=== PATIENT | female | born 1980 | race Caucasian/White ===

== ENCOUNTER 2016-04-24 22:26 | Emergency (ER) | payer OTHER ==
--- NOTE | 2016-04-25 02:49 | ED ORDER SUMMARY ---
..... Patient: HAILEY HASKINS OrderSheet [facility] VisitID: [id number] [place] [address] 35y, F Registration Date/Time: 04/24/2016 ORDER SHEET Weight: 52.6 kg (stated) Allergies: Hydrocodone, Naprosyn, Methocarbamol, Alcohol GENERAL ORDERS: CBC w Diff Urgent (22:33 04/24/2016 Waldo COREAS) (Ack 22:36 Andre) (22:49 DDavis R.N.) CMP Urgent (22:04/24/2016 Waldo COREAS) (Ack 22:36 Andre) (22:49 DDavis R.N.) UA-Culture if indicated Urgent (:04/24/2016 Waldo COREAS) (Ack 22:36 Anrde) (22:49 DDavis R.N.) Amylase Urgent (:04/24/2016 Waldo COREAS) (Ack 22:36 Andre) (22:49 DDavis R.N.) Lipase Urgent (22:33 04/24/2016 Waldo COREAS) (Ack 22:36 Andre) (22:49 DDavis R.N.) Urine Urgent (22:33 04/24/2016 Waldo COREAS) (Ack 22:36 Andre) (22:49 DDavis R.N.) MEDICATION ORDERS: Levofloxacin PO 750 mg (NOW) (23:42 04/24/2016 Waldo COREAS) (Ack 23:48 RCollier R.N.) (0:04 DDavis R.N.) KCl PO 40 meq (NOW) (23:43 04/24/2016 Waldo COREAS) (Ack 23:48 RCollier R.N.) (0:05 DDavis R.N.) GI Cocktail WHITE PO 30 mL with Lidocaine Viscous Mouth/Throat 15 mL, Maalox Plus Oral 15 mL (01:28 04/25/2016 Waldo COREAS) (1:31 DDavis R.N.) IV FLUIDS: IV NS : initial bolus 500 mL (1000 mL/hr), then 125 mL/hr for 4h (NOW); Urgent (22:33 04/24/2016 Waldo COREAS) (Ack 22:52 DDavis R.N.) (22:56 DDavis R.N.) KCl IV 20 meq/100mL (Run no faster than 10 units/hr, HIGH ALERT MEDICATION, NOW, Run no faster than 10 mEq/hr) (23:43 04/24/2016 Waldo COREAS) (Ack 23:48 RCollier R.N.) (0:11 DDavis R.N.) Toradol IV 30 mg (NOW) (23:46 04/24/2016 Waldo CORAES) (Ack 23:48 RCollier R.N.) (0:06 DDavis R.N.) Zofran IV 4 mg (NOW) (23:46 04/24/2016 Waldo COREAS) (Ack 23:48 RCollier R.N.) (0:06 DDavis R.N.) ORDER SHEET NOTES: [Electronically signed by Hilton Sutherland R.N. (02:48 04/25/2016)] [Electronically locked/signed by Hilton Sutherland R.N. (02:48 04/25/2016)]
--- NOTE | 2016-04-25 02:49 | ED NURSING NOTES ---
Clinical Report - Nurses [facility] [place] [address] 04/24/2016 22:25 Patient: HAILEY HASKINS TRIAGE Triage time 22:40. Acuity: LEVEL 3. Chief Complaint: ABDOMINAL PAIN, NAUSEA and VOMITING. SEPSIS SCREEN: Sepsis Screen: negative. Negative (no infection suspected/documented). Heart rate greater than 90. --22:45 Hilton Sutherland R.N. 22:37 04/24/16. BP: 112/59. HR: 64. RR: 22. O2 saturation: 96% on room air. Temp: 98.7 F. Pain level now: 11/26. --22:45 Hilton Sutherland R.N. Weight: 52.6 kg stated. Height/Length: 62 inches Per Patient. BMI: 21.2. --02:30 Hilton Sutherland R.N. Allergies Hydrocodone. --22:39 Hilton Sutherland R.N. Naprosyn. --22:39 Hilton Sutherland R.N. Methocarbamol. --22:40 Hilton Sutherland R.N. Alcohol. Side-Effect Moderate(vomiting) --22:40 Hilton Sutherland R.N. History Arrived by private vehicle. Historian: patient. Accompanied by family and mother and father. Patient has a primary care physician. Primary physician (Dr. Jones @ [facility]). ( Episode onset today, problem started "all week"). She has had nausea, vomiting and severe abdominal pain. The pain is described as located in the RUQ and RLQ. Treatment [employer] CONSULTANT: None. SOCIAL HX: Current some days heavy tobacco smoker- less than 1 pack per day. No alcohol use or drug use. FALL RISK ASSESSMENT: Fall risk assessment completed. No fall risk identified. FUNCTIONAL ASSESSMENT: Functional assessment: no impairments noted. LEARNING NEEDS ASSESSMENT: The learning needs assessment revealed no barriers. --22:45 Hilton Sutherland R.N. PROBLEMS: Migraine Headache. Cystitis. --22:39 Hilton Sutherland R.N. ADDITIONAL SURGERIES: . Exploratory laparotomy. Hysterectomy. --22:39 Hilton Sutherland R.N. Interventions ID and allergy band on patient. To treatment room. --22:45 Hilton Sutherland R.N. PHYSICAL ASSESSMENT ( pt states having pain after urination). GENERAL / NEURO / PSYCH: Alert. Oriented X 4. HEENT: Mucous membranes are pink. RESPIRATORY: Respirations not labored. CVS: Capillary refill less than 2 seconds. GI / : Abdomen soft. Abdominal tenderness in the right upper quadrant and right lower quadrant. SKIN: Skin is warm and dry. --22:46 Hilton Sutherland R.N. ( Patient's Low potassium lvl resulted from lab. Nurse Agustina received value and states that she reported it to attending physician. PAtient placed on physician in private practice.). --23:17 Hilton Sutherland R.N. 23:25 04/24/16. HR: 69 (regular, normal rate and strong). RR: 14. O2 saturation: 100% on room air. Additional comments: Patient NSR on physician in private practice. --23:26 Hilton Sutherland R.N. ( Physician currently with patient.). --23:42 Hilton Sutherland R.N. 23:41 04/24/16. BP: 101/58. HR: 84 (regular and normal rate). RR: 16 (regular and unlabored). O2 saturation: 100% on room air. Additional comments: NSR on monitor. --23:42 Hilton Sutherland R.N. 01:50 04/25/16. BP: 101/68. HR: 80. RR: 18 (regular, unlabored and normal). O2 saturation: 99% on room air. Additional comments: NSP on physician in private practice. sitting up in bed watching televison. --01:54 Hilton Sutherland R.N. NURSING PROGRESS NOTES Patient gowned. Head of bed elevated. Two patient identifiers checked. Call light placed in reach. Side rails up x 1. Bed placed in lowest position. Brakes of bed on. Patient ready for evaluation- chart flagged. Patient waiting for evaluation. --22:47 Hilton Sutherland R.N. 22:48 04/24/2016 Site #1 started via IV in the left upper arm with an 20g angiocath; one attempt. Blood drawn: rainbow set. Sent to the lab. Saline lock flushed with saline. --22:48 Hilton Sutherland R.N. ( IV started by KRISTEN Berrios). --22:48 Hilton Sutherland R.N. 22:56 04/24/2016 Started bag #1 500 mL IV Fluids IV NS (Saline); at 999 mL/hr over 30 minute(s) via site #1 --22:56 Hilton Sutherland R.N. Critical value relayed to ED by Gencia 23:Apr 24 2016. Critical value received by agustina 23:Apr 24 2016. K: 2.7. Critical value. Verified patient ID. ED physician notifed of critical value. Orders were not received. --23:13 Agustina Dos Santos R.N. 23:28 04/24/2016 IV Fluids IV NS Response: no adverse reaction. --23:28 Hilton Sutherland R.N. 23:28 04/24/2016 IV Fluids IV NS via IV site #1 Rate Changed: decreased to 125 mL/hr. IV patency established. IV site checked: no pain, redness, or swelling. IV flushed thoroughly. Confirmed 5 Rights. --23:28 Hilton Sutherland R.N. 00:03 04/25/2016 Toradol IVP 30 mg given over 2 minute(s) via site #1. Allergies verified and confirmed 5 rights. IV patency established. IV site checked: no pain, redness, or swelling. IV flushed thoroughly pre- and post-medication administration. IVP given by RN. --00:06 Hilton Sutherland R.N. 00:03 04/25/2016 Zofran (Ondansetron HCl) IVP 4 mg given. via site #1. Allergies verified and confirmed 5 rights. IV patency established. IV site checked: no pain, redness, or swelling. IV flushed thoroughly pre- and post-medication administration. IVP given by RN. --00:06 Hilton Sutherland R.N. 00:04 04/25/2016 Levofloxacin PO Tablets 750 mg given. Allergies verified and confirmed 5 rights. --00:04 Hilton Sutherland R.N. <<STRICKEN ENTRY-- 00:05 04/25/2016 KCL (Potassium Chloride ER) PO Tablets 40 meq given. --00:05 Hilton Sutherland R.N. --END STRIKE>> Change to Details. --00:05 Hilton Sutherland R.N. 00:05 04/25/2016 KCL (Potassium Chloride ER) PO Tablets 40 meq given. Allergies verified and confirmed 5 rights. --00:05 Hilton Sutherland R.N. 00:11 04/25/2016 Started 20 meq of KCL (Potassium Chloride) IVPB in bag #1 100 mL; at 50 mL/hr over 2 hour(s) via site #1 via IV pump. Allergies verified and confirmed 5 rights. IV patency established. IV site checked: no pain, redness, or swelling. IV flushed thoroughly pre- and post-medication administration. --00:11 Hilton Sutherland R.N. 01:31 04/25/2016 GI COCKTAIL WHITE (Simethicone) PO Oral Suspension 30 mL given. Allergies verified and confirmed 5 rights. --01:31 Hilotn Sutherland R.N. The patient has had no adverse reaction. Overall patient status is improved- she states feels better. Patient waiting for transportation. --02:46 Hilton Sutherland R.N. DISPOSITION / DISCHARGE 02:39 04/25/16. BP: 95/62 taken on the right arm, while sitting. HR: 73 (regular, normal rate and strong). RR: 13 (regular, unlabored and normal). O2 saturation: 99% on room air. Pain level now: 8/10. Additional comments: pt states "I feel better. I'm glad I came.". --02:42 Hilton Sutherland R.N. Condition at departure: improved and stable. No learning barriers present. Discharge instructions provided and reviewed with the patient. Reviewed warnings (as printed on d/c instructions). Reviewed medication(s). Treatments reviewed. Reviewed referrals for followup. Patient verbalized understanding. Written instructions provided in Bahraini. The patient was discharged home and accompanied by senior receptionist. She left the Emergency Department ambulatory and via private vehicle. Driving (pt states family is driving her home). --02:42 Hilton Sutherland R.N. 02:35 04/25/2016 IV Fluids IV NS Discontinued: completed upon discharge. Total amount infused: 450 mL. IV patency established. IV site checked: no pain, redness, or swelling. IV flushed thoroughly. --02:43 Hilton Sutherland R.N. 02:35 04/25/2016 KCL IVPB Discontinued: bag #1 completed upon discharge. IV patency established. IV site checked: no pain, redness, or swelling. IV flushed thoroughly. --02:44 Hilton Sutherland R.N. 02:38 04/25/2016 Site #1 removed upon discharge. Manual pressure and bandage applied. --02:44 Hilton Sutherland R.N. Locked/Released at 04/25/2016 2:48 by Hilton Sutherland R.N.
--- NOTE | 2016-04-25 02:49 | ED ORDER SUMMARY ---
..... Patient: HAILEY HASKINS OrderSheet [facility] VisitID: [id number] [place] [address] 35y, F Registration Date/Time: 04/24/2016 ORDER SHEET Weight: 52.6 kg (stated) Allergies: Hydrocodone, Naprosyn, Methocarbamol, Alcohol GENERAL ORDERS: CBC w Diff Urgent (22:33 04/24/2016 Waldo COREAS) (Ack 22:36 Andre) (22:49 DDavis R.N.) CMP Urgent (22:04/24/2016 Waldo COREAS) (Ack 22:36 Andre) (22:49 DDavis R.N.) UA-Culture if indicated Urgent (:04/24/2016 Waldo COREAS) (Ack 22:36 Andre) (22:49 DDavis R.N.) Amylase Urgent (:04/24/2016 Waldo COREAS) (Ack 22:36 Andre) (22:49 DDavis R.N.) Lipase Urgent (22:33 04/24/2016 Waldo COREAS) (Ack 22:36 Andre) (22:49 DDavis R.N.) Urine Urgent (22:33 04/24/2016 Waldo COREAS) (Ack 22:36 Andre) (22:49 DDavis R.N.) MEDICATION ORDERS: Levofloxacin PO 750 mg (NOW) (23:42 04/24/2016 Waldo COREAS) (Ack 23:48 RCollier R.N.) (0:04 DDavis R.N.) KCl PO 40 meq (NOW) (23:43 04/24/2016 Waldo COREAS) (Ack 23:48 RCollier R.N.) (0:05 DDavis R.N.) GI Cocktail WHITE PO 30 mL with Lidocaine Viscous Mouth/Throat 15 mL, Maalox Plus Oral 15 mL (01:28 04/25/2016 Waldo COREAS) (1:31 DDavis R.N.) IV FLUIDS: IV NS : initial bolus 500 mL (1000 mL/hr), then 125 mL/hr for 4h (NOW); Urgent (22:33 04/24/2016 Waldo COREAS) (Ack 22:52 DDavis R.N.) (22:56 DDavis R.N.) KCl IV 20 meq/100mL (Run no faster than 10 units/hr, HIGH ALERT MEDICATION, NOW, Run no faster than 10 mEq/hr) (23:43 04/24/2016 Waldo COREAS) (Ack 23:48 RCollier R.N.) (0:11 DDavis R.N.) Toradol IV 30 mg (NOW) (23:46 04/24/2016 Waldo COREAS) (Ack 23:48 RCollier R.N.) (0:06 DDavis R.N.) Zofran IV 4 mg (NOW) (23:46 04/24/2016 Waldo COREAS) (Ack 23:48 RCollier R.N.) (0:06 DDavis R.N.) ORDER SHEET NOTES: [Electronically signed by Hilton Sutherland R.N. (02:48 04/25/2016)] [Electronically locked/signed by Hilton Sutherland R.N. (02:48 04/25/2016)]
--- NOTE | 2016-04-25 02:49 | ED NURSING NOTES ---
Clinical Report - Nurses [facility] [place] [address] 04/24/2016 22:25 Patient: HAILEY HASKINS TRIAGE Triage time 22:40. Acuity: LEVEL 3. Chief Complaint: ABDOMINAL PAIN, NAUSEA and VOMITING. SEPSIS SCREEN: Sepsis Screen: negative. Negative (no infection suspected/documented). Heart rate greater than 90. --22:45 Hilton Sutherland R.N. 22:37 04/24/16. BP: 112/59. HR: 64. RR: 22. O2 saturation: 96% on room air. Temp: 98.7 F. Pain level now: 11/26. --22:45 Hilton Sutherland R.N. Weight: 52.6 kg stated. Height/Length: 62 inches Per Patient. BMI: 21.2. --02:30 Hilton Sutherland R.N. Allergies Hydrocodone. --22:39 Hilton Sutherland R.N. Naprosyn. --22:39 Hilton Sutherland R.N. Methocarbamol. --22:40 Hilton Sutherland R.N. Alcohol. Side-Effect Moderate(vomiting) --22:40 Hilton Sutherland R.N. History Arrived by private vehicle. Historian: patient. Accompanied by family and mother and father. Patient has a primary care physician. Primary physician (Dr. Jones @ [facility]). ( Episode onset today, problem started "all week"). She has had nausea, vomiting and severe abdominal pain. The pain is described as located in the RUQ and RLQ. Treatment ROOF FIXER: None. SOCIAL HX: Current some days heavy tobacco smoker- less than 1 pack per day. No alcohol use or drug use. FALL RISK ASSESSMENT: Fall risk assessment completed. No fall risk identified. FUNCTIONAL ASSESSMENT: Functional assessment: no impairments noted. LEARNING NEEDS ASSESSMENT: The learning needs assessment revealed no barriers. --22:45 Hilton Sutherland R.N. PROBLEMS: Migraine Headache. Cystitis. --22:39 Hilton Sutherland R.N. ADDITIONAL SURGERIES: . Exploratory laparotomy. Hysterectomy. --22:39 Hilton Sutherland R.N. Interventions ID and allergy band on patient. To treatment room. --22:45 Hilton Sutherland R.N. PHYSICAL ASSESSMENT ( pt states having pain after urination). GENERAL / NEURO / PSYCH: Alert. Oriented X 4. HEENT: Mucous membranes are pink. RESPIRATORY: Respirations not labored. CVS: Capillary refill less than 2 seconds. GI / : Abdomen soft. Abdominal tenderness in the right upper quadrant and right lower quadrant. SKIN: Skin is warm and dry. --22:46 Hilton Sutherland R.N. ( Patient's Low potassium lvl resulted from lab. Nurse Agustina received value and states that she reported it to attending physician. PAtient placed on diagnostic cardiac sonographer.). --23:17 Hilton Sutherland R.N. 23:25 04/24/16. HR: 69 (regular, normal rate and strong). RR: 14. O2 saturation: 100% on room air. Additional comments: Patient NSR on diagnostic cardiac sonographer. --23:26 Hilton Sutherland R.N. ( Physician currently with patient.). --23:42 Hilton Sutherland R.N. 23:41 04/24/16. BP: 101/58. HR: 84 (regular and normal rate). RR: 16 (regular and unlabored). O2 saturation: 100% on room air. Additional comments: NSR on monitor. --23:42 Hilton Sutherland R.N. 01:50 04/25/16. BP: 101/68. HR: 80. RR: 18 (regular, unlabored and normal). O2 saturation: 99% on room air. Additional comments: NSP on diagnostic cardiac sonographer. sitting up in bed watching televison. --01:54 Hilton Sutherland R.N. NURSING PROGRESS NOTES Patient gowned. Head of bed elevated. Two patient identifiers checked. Call light placed in reach. Side rails up x 1. Bed placed in lowest position. Brakes of bed on. Patient ready for evaluation- chart flagged. Patient waiting for evaluation. --22:47 Hilton Sutherland R.N. 22:48 04/24/2016 Site #1 started via IV in the left upper arm with an 20g angiocath; one attempt. Blood drawn: rainbow set. Sent to the lab. Saline lock flushed with saline. --22:48 Hilton Sutherland R.N. ( IV started by KRISTEN Berrios). --22:48 Hilton Sutherland R.N. 22:56 04/24/2016 Started bag #1 500 mL IV Fluids IV NS (Saline); at 999 mL/hr over 30 minute(s) via site #1 --22:56 Hilton Sutherland R.N. Critical value relayed to ED by ReadyDock 23:Apr 24 2016. Critical value received by agustina 23:Apr 24 2016. K: 2.7. Critical value. Verified patient ID. ED physician notifed of critical value. Orders were not received. --23:13 Agustina Dos Santos R.N. 23:28 04/24/2016 IV Fluids IV NS Response: no adverse reaction. --23:28 Hilton Sutherland R.N. 23:28 04/24/2016 IV Fluids IV NS via IV site #1 Rate Changed: decreased to 125 mL/hr. IV patency established. IV site checked: no pain, redness, or swelling. IV flushed thoroughly. Confirmed 5 Rights. --23:28 Hilton Sutherland R.N. 00:03 04/25/2016 Toradol IVP 30 mg given over 2 minute(s) via site #1. Allergies verified and confirmed 5 rights. IV patency established. IV site checked: no pain, redness, or swelling. IV flushed thoroughly pre- and post-medication administration. IVP given by RN. --00:06 Hilton Sutherland R.N. 00:03 04/25/2016 Zofran (Ondansetron HCl) IVP 4 mg given. via site #1. Allergies verified and confirmed 5 rights. IV patency established. IV site checked: no pain, redness, or swelling. IV flushed thoroughly pre- and post-medication administration. IVP given by RN. --00:06 Hilton Sutherland R.N. 00:04 04/25/2016 Levofloxacin PO Tablets 750 mg given. Allergies verified and confirmed 5 rights. --00:04 Hilton Sutherland R.N. <<STRICKEN ENTRY-- 00:05 04/25/2016 KCL (Potassium Chloride ER) PO Tablets 40 meq given. --00:05 Hilton Sutherland R.N. --END STRIKE>> Change to Details. --00:05 Hilton Sutherland R.N. 00:05 04/25/2016 KCL (Potassium Chloride ER) PO Tablets 40 meq given. Allergies verified and confirmed 5 rights. --00:05 Hilton Sutherland R.N. 00:11 04/25/2016 Started 20 meq of KCL (Potassium Chloride) IVPB in bag #1 100 mL; at 50 mL/hr over 2 hour(s) via site #1 via IV pump. Allergies verified and confirmed 5 rights. IV patency established. IV site checked: no pain, redness, or swelling. IV flushed thoroughly pre- and post-medication administration. --00:11 Hilton Sutherland R.N. 01:31 04/25/2016 GI COCKTAIL WHITE (Simethicone) PO Oral Suspension 30 mL given. Allergies verified and confirmed 5 rights. --01:31 Hilton Sutherland R.N. The patient has had no adverse reaction. Overall patient status is improved- she states feels better. Patient waiting for transportation. --02:46 Hilton Sutherland R.N. DISPOSITION / DISCHARGE 02:39 04/25/16. BP: 95/62 taken on the right arm, while sitting. HR: 73 (regular, normal rate and strong). RR: 13 (regular, unlabored and normal). O2 saturation: 99% on room air. Pain level now: 8/10. Additional comments: pt states "I feel better. I'm glad I came.". --02:42 Hilton Sutherland R.N. Condition at departure: improved and stable. No learning barriers present. Discharge instructions provided and reviewed with the patient. Reviewed warnings (as printed on d/c instructions). Reviewed medication(s). Treatments reviewed. Reviewed referrals for followup. Patient verbalized understanding. Written instructions provided in Algerian. The patient was discharged home and accompanied by employment law attorney. She left the Emergency Department ambulatory and via private vehicle. Driving (pt states family is driving her home). --02:42 Hilton Sutherland R.N. 02:35 04/25/2016 IV Fluids IV NS Discontinued: completed upon discharge. Total amount infused: 450 mL. IV patency established. IV site checked: no pain, redness, or swelling. IV flushed thoroughly. --02:43 Hilton Sutherland R.N. 02:35 04/25/2016 KCL IVPB Discontinued: bag #1 completed upon discharge. IV patency established. IV site checked: no pain, redness, or swelling. IV flushed thoroughly. --02:44 Hilton Sutherland R.N. 02:38 04/25/2016 Site #1 removed upon discharge. Manual pressure and bandage applied. --02:44 Hilton Sutherland R.N. Locked/Released at 04/25/2016 2:48 by Hilton Sutherland R.N.
--- NOTE | 2016-04-25 02:49 | ED CLINICAL REPORT ---
Clinical Report - Physicians/Mid Levels [facility] [address] [place] [address] 04/24/2016 22:25 Patient: HAILEY HASKINS Time Seen: 22:34. Arrived- By private vehicle. Historian- patient. HISTORY OF PRESENT ILLNESS Chief Complaint: FLANK PAIN. It is described as sharp and it is described as located in the right flank and radiating to the right pelvis. At its maximum, severity described as 10 / 10. When seen in the E.D., severity described as 10 / 10. Modifying factors- worsened by cough and deep breaths. Relieved by rest. This started today several days ago and is still present. It was gradual in onset and has been constant. The patient has had nausea (for several days). No loss of appetite. She has had vomiting (for several days - improving today). The vomiting has occurred numerous times. She has had loose stools (for several days - gone today). No bloody diarrhea. REVIEW OF SYSTEMS The patient has had fever, chills and diarrhea and experienced sweats. No calf pain, chest pain, cough, difficulty breathing or pedal edema. No palpitations or black stools. She has had hesitancy. No urgency or frequency of urination. No painful urination. She reports that she recently had hypokalemia after a similar bout of vomiting. She also says that she has had multiple UTIs over the past year. All systems otherwise negative, except as recorded above. PAST HISTORY PCP - [facility] Manuel. Problems: Migraine Headache. Cystitis. Abdominal Pain. Additional Surgeries: . Exploratory laparotomy. Hysterectomy. Allergies: Alcohol. Side-Effect Moderate(vomiting) Hydrocodone. Methocarbamol. Naprosyn. SOCIAL HISTORY Current every day heavy tobacco smoker (cigarette)- less than 1 pack per day. No alcohol use or drug use. FAMILY HISTORY No significant family medical history. ADDITIONAL NOTES The nursing notes have been reviewed. PHYSICAL EXAM Vital Signs: 04/24/2016 22:37 BP: 112/59. HR: 64. RR: 22. O2 saturation: 96%. Temp: 98.7 F. Pain level now: 10/10. Have been reviewed. Appearance: Alert. Eyes: Pupils equal, round and reactive to light. ENT: Pharynx normal. Neck: Neck supple. CVS: Normal heart rate and rhythm. Heart sounds normal. Respiratory: No respiratory distress. Breath sounds normal. Abdomen: Soft and nontender. Bowel sounds normal. No organomegaly. No mass. Back: Normal inspection. Skin: Normal skin color. Normal skin turgor. Extremities: Extremities exhibit normal ROM. No lower extremity edema. LABS, X-RAYS, AND EKG Laboratory Tests: UA-Culture if indicated: (SOHAM: 04/24/2016 22:45) ( [facility] 04/24/2016 23:01) Final results Test Result Flag Units (Reference) URINE COLOR YELLOW URINE APPEARANCE CLEAR URINE GLUCOSE NEGATIVE (NEGATIVE) URINE BILIRUBIN NEGATIVE (NEGATIVE) URINE KETONE NEGATIVE (NEGATIVE) URINE SPECIFIC GRAVITY 1.015 (1.010-1.030) URINE PH 5.5 (5.0-8.0) URINE PROTEIN NEGATIVE (NEGATIVE) URINE UROBILINOGEN 0.2 EU/dL (0.2-1.0) URINE NITRITE POSITIVE (NEGATIVE) URINE BLOOD NEGATIVE (NEGATIVE) URINE LEUK ESTERASE TRACE (NEGATIVE) URINE RBC NONE SEEN rbc/hpf (0-1) URINE WBC 1-3 wbc/hpf (0-1) URINE EPITHELIAL CELLS NONE SEEN EPI/hpf (0-5) URINE BACTERIA MANY (4+) (NONE SEEN) URINE COMMENT CULTURE INDICATED URINE CULTURES ARE SET-UP BASED ON THE FOLLOWING CRITERIA:POSITIVE NITRITEPOSITIVE LEUKOCYTE ESTERASEGREATER THAN 10 WHITE BLOOD CELLSMODERATE (2+) OR GREATER BACTERIA Urine: (SOHAM: 04/24/2016 22:45) ( [facility] 04/24/2016 22:54) Final results Test Result Flag Units (Reference) URINE NEGATIVE CBC w Diff: (SOHAM: 04/24/2016 22:45) ( [facility] 04/24/2016 22:52) Final results Test Result Flag Units (Reference) WHITE BLOOD COUNT 6.2 K/uL (4.5-11.5) RED BLOOD COUNT 4.66 M/uL (4.00-5.20) HEMOGLOBIN 13.1 gm/dL (12.0-16.0) HEMATOCRIT 40.3 % (36.0-46.0) MEAN CELL VOLUME 86 fL (80-100) MEAN CORPUSCULAR HGB 28 pg (26-34) MEAN CORPUSCULAR HGB CONC 33 g/dL (31-37) RED CELL DISTRIBUTION WIDTH 12.4 % (11.6-14.8) PLATELET COUNT 336 K/uL (150-400) LYMPH % 47.9 H % (25-40) MONO % 6.6 % (3-14) GRANULOCYTE % 45.5 L (53-90) CMP: (SOHAM: 04/24/2016 22:45) ( MsgRcvd 04/24/2016 23:20) Final results Test Result Flag Units (Reference) GLUCOSE 102 mg/dL (70-110) BUN 6 L mg/dL (7-18) CREATININE 0.8 mg/dL (0.6-1.3) Estimated GFR >60 mL/min Estimated GFR- >60 mL/min Note: Persistent reduction over 3 months in eGFR<60 mL/min/1.73 m2 defines CKD. Patients with eGFR values>=60 mL/min/1.73 m2 may also have CKD if evidence ofpersistent proteinuria. Additional information may be foundat [email or web address]. SODIUM 142 mmol/L (136-145) POTASSIUM 2.7 *L mmol/L (3.5-5.1) CRITICAL RESULTS CALLEDCalled to KRISTEN FLORES IN ED 04/24/16 [id number] 2 patient identifiers used? YWas the result read back? N CHLORIDE 104 mmol/L (98-107) CARBON DIOXIDE 28 mmol/L (21-32) CALCIUM 8.1 L mg/dL (8.5-10.1) TOTAL PROTEIN 7.0 g/dL (6.4-8.2) ALBUMIN 3.6 g/dL (3.3-5.0) BILIRUBIN, TOTAL 0.2 mg/dL (0.0-1.0) ALKALINE PHOSPHATASE 101 U/L (46-116) AST (SGOT) 16 U/L (15-37) ALT (SGPT) 24 U/L (12-78) LIPASE 151 U/L (73-393) AMYLASE 79 U/L (25-115) MAGNESIUM 1.7 L mg/dL (1.8-2.4) . PROGRESS AND PROCEDURES Course of Care: Symptoms better. Vital signs have been reviewed. Physical exam findings are improved. Alert. No acute distress. Breath sounds normal. No respiratory distress. Normal heart rate and rhythm. Heart sounds normal. Abdomen soft and nontender. Skin warm and dry. Patient/family counseled. Old medical records reviewed. Disposition: Discharged. Condition: stable. CLINICAL IMPRESSION Acute pyelonephritis Hypokalemia INSTRUCTIONS No driving or operating machinery while taking medication. Rest. Drink plenty of fluids. Warnings: Further evaluation is necessary. GENERAL WARNINGS: Return or contact your physician immediately if your condition worsens or changes unexpectedly, if not improving as expected, or if other problems arise. Prescription Medications: Zofran 4 mg: Take 1 orally every six hours as needed for nausea/vomiting. Dispense ten (10). No refills. Substitution is permissible. Cipro 500 mg: take 1 tab orally every 12 hours for 10 days. Dispense twenty (20). No refills. Substitution is permissible. Ultram 50 mg: take 1-2 orally every 6 hours as needed for pain. Dispense ten (10). No refills. Substitution is permissible. Potassium Chloride 10 mEq: take 1 orally every 12 hours - Dispense ten (10) No refills. Follow-up: Follow up with your doctor tomorrow as scheduled. Follow up with a urologist- as recommended by your primary care physician. Understanding of the discharge instructions verbalized by patient. (Electronically signed by Nick Brandon MD 04/25/2016 2:54)
--- NOTE | 2016-04-25 02:49 | ED CLINICAL REPORT ---
Clinical Report - Physicians/Mid Levels [facility] [address] [place] [address] 04/24/2016 22:25 Patient: HAILEY HASKINS Time Seen: 22:34. Arrived- By private vehicle. Historian- patient. HISTORY OF PRESENT ILLNESS Chief Complaint: FLANK PAIN. It is described as sharp and it is described as located in the right flank and radiating to the right pelvis. At its maximum, severity described as 10 / 10. When seen in the E.D., severity described as 10 / 10. Modifying factors- worsened by cough and deep breaths. Relieved by rest. This started today several days ago and is still present. It was gradual in onset and has been constant. The patient has had nausea (for several days). No loss of appetite. She has had vomiting (for several days - improving today). The vomiting has occurred numerous times. She has had loose stools (for several days - gone today). No bloody diarrhea. REVIEW OF SYSTEMS The patient has had fever, chills and diarrhea and experienced sweats. No calf pain, chest pain, cough, difficulty breathing or pedal edema. No palpitations or black stools. She has had hesitancy. No urgency or frequency of urination. No painful urination. She reports that she recently had hypokalemia after a similar bout of vomiting. She also says that she has had multiple UTIs over the past year. All systems otherwise negative, except as recorded above. PAST HISTORY PCP - [facility] Manuel. Problems: Migraine Headache. Cystitis. Abdominal Pain. Additional Surgeries: . Exploratory laparotomy. Hysterectomy. Allergies: Alcohol. Side-Effect Moderate(vomiting) Hydrocodone. Methocarbamol. Naprosyn. SOCIAL HISTORY Current every day heavy tobacco smoker (cigarette)- less than 1 pack per day. No alcohol use or drug use. FAMILY HISTORY No significant family medical history. ADDITIONAL NOTES The nursing notes have been reviewed. PHYSICAL EXAM Vital Signs: 04/24/2016 22:37 BP: 112/59. HR: 64. RR: 22. O2 saturation: 96%. Temp: 98.7 F. Pain level now: 10/10. Have been reviewed. Appearance: Alert. Eyes: Pupils equal, round and reactive to light. ENT: Pharynx normal. Neck: Neck supple. CVS: Normal heart rate and rhythm. Heart sounds normal. Respiratory: No respiratory distress. Breath sounds normal. Abdomen: Soft and nontender. Bowel sounds normal. No organomegaly. No mass. Back: Normal inspection. Skin: Normal skin color. Normal skin turgor. Extremities: Extremities exhibit normal ROM. No lower extremity edema. LABS, X-RAYS, AND EKG Laboratory Tests: UA-Culture if indicated: (SOHAM: 04/24/2016 22:45) ( [facility] 04/24/2016 23:01) Final results Test Result Flag Units (Reference) URINE COLOR YELLOW URINE APPEARANCE CLEAR URINE GLUCOSE NEGATIVE (NEGATIVE) URINE BILIRUBIN NEGATIVE (NEGATIVE) URINE KETONE NEGATIVE (NEGATIVE) URINE SPECIFIC GRAVITY 1.015 (1.010-1.030) URINE PH 5.5 (5.0-8.0) URINE PROTEIN NEGATIVE (NEGATIVE) URINE UROBILINOGEN 0.2 EU/dL (0.2-1.0) URINE NITRITE POSITIVE (NEGATIVE) URINE BLOOD NEGATIVE (NEGATIVE) URINE LEUK ESTERASE TRACE (NEGATIVE) URINE RBC NONE SEEN rbc/hpf (0-1) URINE WBC 1-3 wbc/hpf (0-1) URINE EPITHELIAL CELLS NONE SEEN EPI/hpf (0-5) URINE BACTERIA MANY (4+) (NONE SEEN) URINE COMMENT CULTURE INDICATED URINE CULTURES ARE SET-UP BASED ON THE FOLLOWING CRITERIA:POSITIVE NITRITEPOSITIVE LEUKOCYTE ESTERASEGREATER THAN 10 WHITE BLOOD CELLSMODERATE (2+) OR GREATER BACTERIA Urine: (SOHAM: 04/24/2016 22:45) ( [facility] 04/24/2016 22:54) Final results Test Result Flag Units (Reference) URINE NEGATIVE CBC w Diff: (SOHAM: 04/24/2016 22:45) ( [facility]:52[facility] Final results Test Result Flag Units (Reference) WHITE BLOOD COUNT 6.2 K/uL (4.5-11.5) RED BLOOD COUNT 4.66 M/uL (4.00-5.20) HEMOGLOBIN 13.1 gm/dL (12.0-16.0) HEMATOCRIT 40.3 % (36.0-46.0) MEAN CELL VOLUME 86 fL (80-100) MEAN CORPUSCULAR HGB 28 pg (26-34) MEAN CORPUSCULAR HGB CONC 33 g/dL (31-37) RED CELL DISTRIBUTION WIDTH 12.4 % (11.6-14.8) PLATELET COUNT 336 K/uL (150-400) LYMPH % 47.9 H % (25-40) MONO % 6.6 % (3-14) GRANULOCYTE % 45.5 L (53-90) CMP: (SOHAM: 04/24/2016 22:45) ( MsgRcvd 04/24/2016 23:20) Final results Test Result Flag Units (Reference) GLUCOSE 102 mg/dL (70-110) BUN 6 L mg/dL (7-18) CREATININE 0.8 mg/dL (0.6-1.3) Estimated GFR >60 mL/min Estimated GFR- >60 mL/min Note: Persistent reduction over 3 months in eGFR<60 mL/min/1.73 m2 defines CKD. Patients with eGFR values>=60 mL/min/1.73 m2 may also have CKD if evidence ofpersistent proteinuria. Additional information may be foundat [email or web address]. SODIUM 142 mmol/L (136-145) POTASSIUM 2.7 *L mmol/L (3.5-5.1) CRITICAL RESULTS CALLEDCalled to KRISTEN FLORES IN ED 04/24/16 [id number] 2 patient identifiers used? YWas the result read back? N CHLORIDE 104 mmol/L (98-107) CARBON DIOXIDE 28 mmol/L (21-32) CALCIUM 8.1 L mg/dL (8.5-10.1) TOTAL PROTEIN 7.0 g/dL (6.4-8.2) ALBUMIN 3.6 g/dL (3.3-5.0) BILIRUBIN, TOTAL 0.2 mg/dL (0.0-1.0) ALKALINE PHOSPHATASE 101 U/L (46-116) AST (SGOT) 16 U/L (15-37) ALT (SGPT) 24 U/L (12-78) LIPASE 151 U/L (73-393) AMYLASE 79 U/L (25-115) MAGNESIUM 1.7 L mg/dL (1.8-2.4) . PROGRESS AND PROCEDURES Course of Care: Symptoms better. Vital signs have been reviewed. Physical exam findings are improved. Alert. No acute distress. Breath sounds normal. No respiratory distress. Normal heart rate and rhythm. Heart sounds normal. Abdomen soft and nontender. Skin warm and dry. Patient/family counseled. Old medical records reviewed. Disposition: Discharged. Condition: stable. CLINICAL IMPRESSION Acute pyelonephritis Hypokalemia INSTRUCTIONS No driving or operating machinery while taking medication. Rest. Drink plenty of fluids. Warnings: Further evaluation is necessary. GENERAL WARNINGS: Return or contact your physician immediately if your condition worsens or changes unexpectedly, if not improving as expected, or if other problems arise. Prescription Medications: Zofran 4 mg: Take 1 orally every six hours as needed for nausea/vomiting. Dispense ten (10). No refills. Substitution is permissible. Cipro 500 mg: take 1 tab orally every 12 hours for 10 days. Dispense twenty (20). No refills. Substitution is permissible. Ultram 50 mg: take 1-2 orally every 6 hours as needed for pain. Dispense ten (10). No refills. Substitution is permissible. Potassium Chloride 10 mEq: take 1 orally every 12 hours - Dispense ten (10) No refills. Follow-up: Follow up with your doctor tomorrow as scheduled. Follow up with a urologist- as recommended by your primary care physician. Understanding of the discharge instructions verbalized by patient. (Electronically signed by Nick Brandon MD 04/25/2016 2:54)
--- NOTE | 2016-04-25 02:55 | ED MAR SUMMARY ---
..... Medication Administration Record [facility] [address] [place] [address] Patient: HAILEY HASKINS Visit ID: [id number] 35y, F Weight: 52.6 kg Height/Length: 62 in BMI: 21.2 ALLERGIES: Alcohol, Methocarbamol, Naprosyn, Hydrocodone Start 22:56 04/24/2016 Hilton Sutherland R.N., Stop 02:35 04/25/2016 Hilton Sutherland R.N. Medication Administered: IV NS (SALINE), Dose: IV Fluids over 30 minute(s), Rate: 999 mL/hr, Dispensed: 500 mL bag, Site: #1 left upper arm. Medication Ordered: IV NS : initial bolus 500 mL (1000 mL/hr), then 125 mL/hr for 4h (NOW); Urgent. Given 00:03 04/25/2016 Hilton Sutherland R.N. Medication Administered: TORADOL [IVP], Dose: 30 mg IVP over 2 minute(s), Site: #1 left upper arm. Medication Ordered: Toradol IV 30 mg (NOW). Given 00:03 04/25/2016 Hilton Sutherland R.N. Medication Administered: ZOFRAN [IVP] (ONDANSETRON HCL), Dose: 4 mg IVP, Site: #1 left upper arm. Medication Ordered: Zofran IV 4 mg (NOW). Given 00:04 04/25/2016 Hilton Sutherland R.N. Medication Administered: LEVOFLOXACIN [PO], Dose: 750 mg Tablets PO. Medication Ordered: Levofloxacin PO 750 mg (NOW). Given 00:05 04/25/2016 Hilton Sutherland R.N. Medication Administered: KCL [PO] (POTASSIUM CHLORIDE ER), Dose: 40 meq Tablets PO. Medication Ordered: KCl PO 40 meq (NOW). Start 00:11 04/25/2016 Hilton Sutherland R.N., Stop 02:35 04/25/2016 Hilton Sutherland R.N. Medication Administered: KCL [IVPB] (POTASSIUM CHLORIDE), Dose: 20 meq IVPB over 2 hour(s), Rate: 50 mL/hr, Dispensed: 100 mL bag, Site: #1 left upper arm. Medication Ordered: KCl IV 20 meq/100mL (Run no faster than 10 units/hr, HIGH ALERT MEDICATION, NOW, Run no faster than 10 mEq/hr). Given 01:31 04/25/2016 Hilton Sutherland R.N. Medication Administered: GI COCKTAIL WHITE [PO] (SIMETHICONE), Dose: 30 mL Oral Suspension PO. Medication Ordered: GI Cocktail WHITE PO 30 mL with Lidocaine Viscous Mouth/Throat 15 mL, Maalox Plus Oral 15 mL.
--- NOTE | 2016-04-25 02:55 | ED MED RECONCILIATION SUMMARY ---
Patient: HAILEY HASKINS Medication Reconciliation Report [facility] VisitID: [id number] [place] [address] 35y, F Registration Date/Time: 04/24/2016 Weight: 52.6 kg Height/Length: 62 in. BMI: 21.2 ALLERGIES: Alcohol, Hydrocodone, Methocarbamol, Naprosyn The patient's Home Medications are listed below: Not obtained. The source(s) of the original Home Medication information: Not obtained. The following Medications were given to the patient in the Emergency Department: IV NS IV Fluids bolus 0, then 999 mL/hr, administered: 04/24/2016 10:56:00 PM Levofloxacin [PO] PO 750 mg, administered: 04/25/2016 12:04:00 AM KCL [PO] PO 40 meq, administered: 04/25/2016 12:05:00 AM Toradol [IVP] IVP 30 mg, administered: 04/25/2016 12:03:00 AM Zofran [IVP] IVP 4 mg, administered: 04/25/2016 12:03:00 AM KCL [IVPB] IVPB bolus 0, then 20 meq 50 mL/hr, administered: 04/25/2016 12:11:00 AM GI COCKTAIL WHITE [PO] PO 30 mL, administered: 04/25/2016 1:31:00 AM The following Medications were prescribed to the patient: Zofran 4 mg: Take 1 orally every six hours as needed for nausea/vomiting. Dispense ten (10). No refills. Substitution is permissible. -- Nick Brandon MD Cipro 500 mg: take 1 tab orally every 12 hours for 10 days. Dispense twenty (20). No refills. Substitution is permissible. -- Nick Brandon MD Ultram 50 mg: take 1-2 orally every 6 hours as needed for pain. Dispense ten (10). No refills. Substitution is permissible. -- Nick Brandon MD Potassium Chloride 10 mEq: take 1 orally every 12 hours - Dispense ten (10) No refills. -- Nick Brandon MD
--- NOTE | 2016-04-25 02:55 | ED DISCHARGE INSTRUCTIONS ---
Patient: HAILEY HASKINS General Instructions [facility] VisitID: [id number] [place] [address] 35y, F Registration Date/Time: 04/24/2016 Acute pyelonephritis Hypokalemia INSTRUCTIONS No driving or operating machinery while taking medication. Rest. Drink plenty of fluids. Warnings: Further evaluation is necessary. GENERAL WARNINGS: Return or contact your physician immediately if your condition worsens or changes unexpectedly, if not improving as expected, or if other problems arise. Prescription Medications: Zofran 4 mg: Take 1 orally every six hours as needed for nausea/vomiting. Dispense ten (10). No refills. Substitution is permissible. Cipro 500 mg: take 1 tab orally every 12 hours for 10 days. Dispense twenty (20). No refills. Substitution is permissible. Ultram 50 mg: take 1-2 orally every 6 hours as needed for pain. Dispense ten (10). No refills. Substitution is permissible. Potassium Chloride 10 mEq: take 1 orally every 12 hours - Dispense ten (10) No refills. Follow-up: Follow up with your doctor tomorrow as scheduled. Follow up with a urologist- as recommended by your primary care physician. Understanding of the discharge instructions verbalized by patient. ADDITIONAL INFORMATION Kidney Infection [Adult, Female] An infection of the kidney is also called "pyelonephritis". It usually starts as a bladder infection ("cystitis") which spreads to the kidneys. Pyelonephritis is more serious than a bladder infection. It can cause severe illness if not treated properly. The usual symptoms include an aching pain in the back, side or lower abdomen. Other symptoms may include fever, chills, nausea, vomiting, an urge to urinate and a burning sensation when passing urine. Home Care: Stay home from work or school. Rest in bed until your fever breaks and you are feeling better. Drink lots of fluid (at least 6-8 glasses a day, unless you must restrict fluids for other medical reasons). This will force the medicine into your urinary system and flush the bacteria out of your body. Avoid sexual intercourse until you have finished all of your medicine and your symptoms have gone away. Avoid caffeine, alcohol and spicy foods which may irritate the kidney and bladder. You may use acetaminophen (Tylenol) or ibuprofen (Motrin, Advil) to control pain, unless another pain medicine was prescribed. [NOTE: If you have chronic liver or kidney disease or ever had a stomach ulcer or GI bleeding, talk with your doctor before using these medicines.] Follow Up with your doctor or as advised by our staff for a repeat urine test in 10 days. This will ensure that your infection is fully cleared. [NOTE: If you had an X-ray or CT scan, it will be reviewed by a specialist. You will be notified of any new findings that may affect your care.] Get Prompt Medical Attention if any of the following occur: Fever over 100.4F (38.0C) after 48 hours of treatment No improvement by the third day of treatment Increasing back or abdominal pain Repeated vomiting or inability to take oral medicine Weakness, dizziness or fainting Hypokalemia Hypokalemia means a low level of potassium in the blood. This most often occurs in patients who take diuretics (water pills). It can also occur due to severe vomiting or diarrhea. A mild case usually causes no symptoms. It is only found with blood testing. More severe potassium loss causes generalized weakness, muscle or abdominal cramping, heart palpitations (rapid or irregular heartbeats) and low blood pressure. Home Care: 1) Take any potassium supplements prescribed. 2) Eat foods rich in potassium. The highest amount is found in artichoke, baked potatoes, spinach, cantaloupe, honeydew melon, cod, halibut, salmon, and scallops. White, red, or bazan beans are also very good sources. A modest amount is found in orange juice, bananas, carrots, and tomato juice. 3) Certain types of diuretics (water pills), such as Lasix (furosemide), require that you take potassium supplements for as long as you take the diuretic pills. If you are taking a diuretic, discuss the need for potassium supplements with your doctor. Follow Up with your doctor for a repeat blood test within the next week or as advised by our staff. Get Prompt Medical Attention if any of the following occur: -- Increased weakness -- Feeling dizzy -- Irregular heartbeat, extra beats or very fast heart rate -- Fainting spell Ondansetron Oral disintegrating tablet What is this medicine? ONDANSETRON (on DIXIE se krys) is used to treat nausea and vomiting caused by chemotherapy. It is also used to prevent or treat nausea and vomiting after surgery. How should I use this medicine? These tablets are made to dissolve in the mouth. Do not try to push the tablet through the foil backing. With dry hands, peel away the foil backing and gently remove the tablet. Place the tablet in the mouth and allow it to dissolve, then swallow. While you may take these tablets with water, it is not necessary to do so. Talk to your food service regarding the use of this medicine in children. Special care may be needed. What side effects may I notice from receiving this medicine? Side effects that you should report to your doctor or health occasional caregiver as soon as possible: allergic reactions like skin rash, itching or hives, swelling of the face, lips, or tongue breathing problems dizziness fast or irregular heartbeat feeling faint or lightheaded, falls fever and chills swelling of the hands and feet tightness in the chest Side effects that usually do not require medical attention (report to your doctor or health occasional caregiver if they continue or are bothersome): constipation or diarrhea headache What may interact with this medicine? Do not take this medicine with any of the following medications: -apomorphine -cisapride -dofetilide -dronedarone -pimozide -thioridazine -ziprasidone This medicine may also interact with the following medications: -carbamazepine -phenytoin -rifampicin -tramadol -other medicines that prolong the QT interval (cause an abnormal heart rhythm) What if I miss a dose? If you miss a dose, take it as soon as you can. If it is almost time for your next dose, take only that dose. Do not take double or extra doses. Where should I keep my medicine? Keep out of the reach of children. Store between 2 and 30 degrees C (36 and 86 degrees F). Throw away any unused medicine after the expiration date. What should I tell my health care provider before I take this medicine? They need to know if you have any of these conditions: heart disease history of irregular heartbeat liver disease low levels of magnesium or potassium in the blood an unusual or allergic reaction to ondansetron, granisetron, other medicines, foods, dyes, or preservatives or trying to get breast-feeding What should I watch for while using this medicine? Check with your doctor or health occasional caregiver as soon as you can if you have any sign of an allergic reaction. Ciprofloxacin Hydrochloride Oral tablet What is this medicine? CIPROFLOXACIN (sip ciara FLOX a sin) is a quinolone antibiotic. It is used to treat certain kinds of bacterial infections. It will not work for colds, flu, or other viral infections. How should I use this medicine? Take this medicine by mouth with a glass of water. Follow the directions on the prescription label. Take your medicine at regular intervals. Do not take your medicine more often than directed. Take all of your medicine as directed even if you think your are better. Do not skip doses or stop your medicine early. You can take this medicine with food or on an empty stomach. It can be taken with a meal that contains dairy or calcium, but do not take it alone with a dairy product, like milk or yogurt or calcium-fortified juice. A special MedGuide will be given to you by the pharmacist with each prescription and refill. Be sure to read this information carefully each time. Talk to your food service regarding the use of this medicine in children. Special care may be needed. What side effects may I notice from receiving this medicine? Side effects that you should report to your doctor or health occasional caregiver as soon as possible: - allergic reactions like skin rash, itching or hives, swelling of the face, lips, or tongue - breathing problems - confusion, nightmares or hallucinations - feeling faint or lightheaded, falls - irregular heartbeat - joint, muscle or tendon pain or swelling - pain or trouble passing urine -persistent headache with or without blurred vision - redness, blistering, peeling or loosening of the skin, including inside the mouth - seizure - unusual pain, numbness, tingling, or weakness Side effects that usually do not require medical attention (report to your doctor or health occasional caregiver if they continue or are bothersome): - diarrhea - nausea or stomach upset - white patches or sores in the mouth What may interact with this medicine? Do not take this medicine with any of the following medications: cisapride droperidol terfenadine tizanidine This medicine may also interact with the following medications: antacids caffeine cyclosporin didanosine (ddI) buffered tablets or powder medicines for diabetes medicines for inflammation like ibuprofen, naproxen methotrexate multivitamins omeprazole phenytoin probenecid sucralfate theophylline warfarin What if I miss a dose? If you miss a dose, take it as soon as you can. If it is almost time for your next dose, take only that dose. Do not take double or extra doses. Where should I keep my medicine? Keep out of the reach of children. Store at room temperature below 30 degrees C (86 degrees F). Keep container tightly closed. Throw away any unused medicine after the expiration date. What should I tell my health care provider before I take this medicine? They need to know if you have any of these conditions: -bone problems -cerebral disease -joint problems -irregular heartbeat -kidney disease -liver disease -myasthenia gravis -seizure disorder -tendon problems -an unusual or allergic reaction to ciprofloxacin, other antibiotics or medicines, foods, dyes, or preservatives - or trying to get -breast-feeding What should I watch for while using this medicine? Tell your doctor or health occasional caregiver if your symptoms do not improve. Do not treat diarrhea with over the counter products. Contact your doctor if you have diarrhea that lasts more than 2 days or if it is severe and watery. You may get drowsy or dizzy. Do not drive, use machinery, or do anything that needs mental alertness until you know how this medicine affects you. Do not stand or sit up quickly, especially if you are an older patient. This reduces the risk of dizzy or fainting spells. This medicine can make you more sensitive to the sun. Keep out of the sun. If you cannot avoid being in the sun, wear protective clothing and use sunscreen. Do not use sun lamps or tanning beds/booths. Avoid antacids, aluminum, calcium, iron, magnesium, and zinc products for 6 hours before and 2 hours after taking a dose of this medicine. Tramadol Hydrochloride Oral tablet What is this medicine? TRAMADOL (TRA ma dole) is a pain reliever. It is used to treat moderate to severe pain in adults. How should I use this medicine? Take this medicine by mouth with a full glass of water. Follow the directions on the prescription label. If the medicine upsets your stomach, take it with food or milk. Do not take more medicine than you are told to take. Talk to your food service regarding the use of this medicine in children. Special care may be needed. What side effects may I notice from receiving this medicine? Side effects that you should report to your doctor or health occasional caregiver as soon as possible: allergic reactions like skin rash, itching or hives, swelling of the face, lips, or tongue breathing difficulties, wheezing confusion itching light headedness or fainting spells redness, blistering, peeling or loosening of the skin, including inside the mouth seizures Side effects that usually do not require medical attention (report to your doctor or health occasional caregiver if they continue or are bothersome): constipation dizziness drowsiness headache nausea, vomiting What may interact with this medicine? Do not take this medicine with any of the following medications: MAOIs like Carbex, Eldepryl, Marplan, Nardil, and Parnate This medicine may also interact with the following medications: alcohol or medicines that contain alcohol antihistamines benzodiazepines bupropion carbamazepine or oxcarbazepine clozapine cyclobenzaprine digoxin furazolidone linezolid medicines for depression, anxiety, or psychotic disturbances medicines for migraine headache like almotriptan, eletriptan, frovatriptan, naratriptan, rizatriptan, sumatriptan, zolmitriptan medicines for pain like pentazocine, buprenorphine, butorphanol, meperidine, nalbuphine, and propoxyphene medicines for sleep muscle relaxants naltrexone phenobarbital phenothiazines like perphenazine, thioridazine, chlorpromazine, mesoridazine, fluphenazine, prochlorperazine, promazine, and trifluoperazine procarbazine warfarin What if I miss a dose? If you miss a dose, take it as soon as you can. If it is almost time for your next dose, take only that dose. Do not take double or extra doses. Where should I keep my medicine? Keep out of the reach of children. Store at room temperature between 15 and 30 degrees C (59 and 86 degrees F). Keep container tightly closed. Throw away any unused medicine after the expiration date. What should I tell my health care provider before I take this medicine? They need to know if you have any of these conditions: brain tumor depression drug abuse or addiction head injury if you frequently drink alcohol containing drinks kidney disease or trouble passing urine liver disease lung disease, asthma, or breathing problems seizures or epilepsy suicidal thoughts, plans, or attempt; a previous suicide attempt by you or a family member an unusual or allergic reaction to tramadol, codeine, other medicines, foods, dyes, or preservatives or trying to get breast-feeding What should I watch for while using this medicine? Tell your doctor or health occasional caregiver if your pain does not go away, if it gets worse, or if you have new or a different type of pain. You may develop tolerance to the medicine. Tolerance means that you will need a higher dose of the medicine for pain relief. Tolerance is normal and is expected if you take this medicine for a long time. Do not suddenly stop taking your medicine because you may develop a severe reaction. Your body becomes used to the medicine. This does NOT mean you are addicted. Addiction is a behavior related to getting and using a drug for a non-medical reason. If you have pain, you have a medical reason to take pain medicine. Your doctor will tell you how much medicine to take. If your doctor wants you to stop the medicine, the dose will be slowly lowered over time to avoid any side effects. You may get drowsy or dizzy. Do not drive, use machinery, or do anything that needs mental alertness until you know how this medicine affects you. Do not stand or sit up quickly, especially if you are an older patient. This reduces the risk of dizzy or fainting spells. Alcohol can increase or decrease the effects of this medicine. Avoid alcoholic drinks. You may have constipation. Try to have a bowel movement at least every 2 to 3 days. If you do not have a bowel movement for 3 days, call your doctor or health occasional caregiver. Your mouth may get dry. Chewing sugarless gum or sucking hard candy, and drinking plenty of water may help. Contact your doctor if the problem does not go away or is severe. You have been given the following additional information: Pyelonephritis, Female (Adult) Hypokalemia Ondansetron Oral disintegrating tablet Ciprofloxacin Hydrochloride Oral tablet Tramadol Hydrochloride Oral tablet No driving or operating machinery while taking medication. Rest. (Electronically signed by iNck Brandon MD 04/25/2016 2:54)
--- NOTE | 2016-04-25 02:55 | ED MAR SUMMARY ---
..... Medication Administration Record [facility] [address] [place] [address] Patient: HAILEY HASKINS Visit ID: [id number] 35y, F Weight: 52.6 kg Height/Length: 62 in BMI: 21.2 ALLERGIES: Alcohol, Methocarbamol, Naprosyn, Hydrocodone Start 22:56 04/24/2016 Hilton Sutherland R.N., Stop 02:35 04/25/2016 Hilton Sutherland R.N. Medication Administered: IV NS (SALINE), Dose: IV Fluids over 30 minute(s), Rate: 999 mL/hr, Dispensed: 500 mL bag, Site: #1 left upper arm. Medication Ordered: IV NS : initial bolus 500 mL (1000 mL/hr), then 125 mL/hr for 4h (NOW); Urgent. Given 00:03 04/25/2016 Hilton Sutherland R.N. Medication Administered: TORADOL [IVP], Dose: 30 mg IVP over 2 minute(s), Site: #1 left upper arm. Medication Ordered: Toradol IV 30 mg (NOW). Given 00:03 04/25/2016 Hilton Sutherland R.N. Medication Administered: ZOFRAN [IVP] (ONDANSETRON HCL), Dose: 4 mg IVP, Site: #1 left upper arm. Medication Ordered: Zofran IV 4 mg (NOW). Given 00:04 04/25/2016 Hilton Sutherland R.N. Medication Administered: LEVOFLOXACIN [PO], Dose: 750 mg Tablets PO. Medication Ordered: Levofloxacin PO 750 mg (NOW). Given 00:05 04/25/2016 Hilton Sutherland R.N. Medication Administered: KCL [PO] (POTASSIUM CHLORIDE ER), Dose: 40 meq Tablets PO. Medication Ordered: KCl PO 40 meq (NOW). Start 00:11 04/25/2016 Hilton Sutherland R.N., Stop 02:35 04/25/2016 Hilton Sutherland R.N. Medication Administered: KCL [IVPB] (POTASSIUM CHLORIDE), Dose: 20 meq IVPB over 2 hour(s), Rate: 50 mL/hr, Dispensed: 100 mL bag, Site: #1 left upper arm. Medication Ordered: KCl IV 20 meq/100mL (Run no faster than 10 units/hr, HIGH ALERT MEDICATION, NOW, Run no faster than 10 mEq/hr). Given 01:31 04/25/2016 Hilton Sutherland R.N. Medication Administered: GI COCKTAIL WHITE [PO] (SIMETHICONE), Dose: 30 mL Oral Suspension PO. Medication Ordered: GI Cocktail WHITE PO 30 mL with Lidocaine Viscous Mouth/Throat 15 mL, Maalox Plus Oral 15 mL.
--- NOTE | 2016-04-25 02:55 | ED MED RECONCILIATION SUMMARY ---
Patient: HAILEY HASKINS Medication Reconciliation Report [facility] VisitID: [id number] [place] [address] 35y, F Registration Date/Time: 04/24/2016 Weight: 52.6 kg Height/Length: 62 in. BMI: 21.2 ALLERGIES: Alcohol, Hydrocodone, Methocarbamol, Naprosyn The patient's Home Medications are listed below: Not obtained. The source(s) of the original Home Medication information: Not obtained. The following Medications were given to the patient in the Emergency Department: IV NS IV Fluids bolus 0, then 999 mL/hr, administered: 04/24/2016 10:56:00 PM Levofloxacin [PO] PO 750 mg, administered: 04/25/2016 12:04:00 AM KCL [PO] PO 40 meq, administered: 04/25/2016 12:05:00 AM Toradol [IVP] IVP 30 mg, administered: 04/25/2016 12:03:00 AM Zofran [IVP] IVP 4 mg, administered: 04/25/2016 12:03:00 AM KCL [IVPB] IVPB bolus 0, then 20 meq 50 mL/hr, administered: 04/25/2016 12:11:00 AM GI COCKTAIL WHITE [PO] PO 30 mL, administered: 04/25/2016 1:31:00 AM The following Medications were prescribed to the patient: Zofran 4 mg: Take 1 orally every six hours as needed for nausea/vomiting. Dispense ten (10). No refills. Substitution is permissible. -- Nick Brandon MD Cipro 500 mg: take 1 tab orally every 12 hours for 10 days. Dispense twenty (20). No refills. Substitution is permissible. -- Nick Brandon MD Ultram 50 mg: take 1-2 orally every 6 hours as needed for pain. Dispense ten (10). No refills. Substitution is permissible. -- Nick Brandon MD Potassium Chloride 10 mEq: take 1 orally every 12 hours - Dispense ten (10) No refills. -- Nick Brandon MD
== END 2016-04-25 02:40 | disposition home or self-care (01) ==
LOC: ED SRH 22:26
DX: N10 Acute pyelonephritis (principal); E87.6 Hypokalemia; F17.210 Nicotine dependence, cigarettes, uncomplicated; Z88.8 Allergy status to other drugs, medicaments and biological substances; Z88.5 Allergy status to narcotic agent
CPT/HCPCS: 90004; 90100; 90148; 90469; 92235; 92530; 92720; 93070; 95059